=== PATIENT | female | born 1950 | race Caucasian/White ===

== ENCOUNTER 2022-12-09 15:53 | Emergency (ER) | payer OTHER ==
[~2022-12-09] VITALS: Wt 128.4 kg
[2022-12-09 16:27] LABS: HEMATOCRIT 51.8 % (37.0-47.0); MEAN CELL VOLUME 96.1 fl (81.0-99.0); MEAN CORPUSCULAR HGB 28.2 pg (27.0-31.0); MEAN CORPUSCULAR HGB CONC 29.3 g/dl (33.0-37.0); MEAN PLATELET VOLUME 11.2 fl (9.6-12.3); NUCLEATED RED BLOOD CELL 0.2 % (0.0-0.0); PLATELET COUNT AUTOMATED 139 10*3/uL (130-400); RED BLOOD COUNT 5.39 10*6/uL (4.10-5.10); WHITE BLOOD COUNT 12.5 10*3/uL (4.8-10.8)
[2022-12-09] MEDS ORDERED: ESTRING1 EACH V (16:39)
[2022-12-09] MEDS ORDERED: LISINOPRIL20 MG PO (16:40)
[2022-12-09] MEDS ORDERED: ALENDRONATE SOD70 M1 PO (16:40)
[2022-12-09] MEDS ORDERED: SERTRALINE HYD100 MG PO (16:41)
[2022-12-09] MEDS ORDERED: GEMTESA75 MG PO (16:42)
[2022-12-09 16:45] LABS: POTASSIUM 3.4 mmol/L (3.4-5.1)
[2022-12-09 16:49] LABS: MANUAL DIFF REFLEX YES
[2022-12-09 16:52] LABS: TOTAL CELLS COUNTED 100 #CELLS
[2022-12-09 16:53] LABS: BURR CELLS MODERATE; PLATELET SUFFICIENCY LOW (NORMAL); POLYCHROMASIA SLIGHT
== END 2022-12-09 16:23 ==
LOC: ED 15:53
PROVIDERS: Student in an Organized Health Care Education/Training Program
DX: I46.9 Cardiac arrest, cause unspecified (principal); I10 Essential (primary) hypertension; F32.A Depression, unspecified; Z88.1 Allergy status to other antibiotic agents; Z91.040 Latex allergy status